=== PATIENT | male | born 1980 | race Caucasian/White ===

== ENCOUNTER 2023-11-30 17:56 | Emergency (ER) | payer BC ==
[~2023-11-30] VITALS: Ht 175.3 cm; Wt 103.4 kg
[2023-11-30 18:30] VITALS: BP_SYST 116; PULSE 98; RESP 17; TEMP 97; O2SAT 99
[2023-11-30 19:34] VITALS: BP_SYST 116; PULSE 98; RESP 17; TEMP 97; O2SAT 99
== END 2023-11-30 19:36 | disposition left against medical advice (07) ==
LOC: SED 17:56
DX: N50.811 Right testicular pain (principal); Z53.21 Procedure and treatment not carried out due to patient leaving prior to being seen by health care provider